=== PATIENT | female | born 1990 | race Caucasian/White ===

== ENCOUNTER 2019-09-06 20:49 | Emergency (ER) | payer BC ==
--- NOTE | 2019-09-06 21:13 | EDM.PDOC ---
ED HPI GENERAL MEDICAL PROBLEM - General Chief Complaint: Gastrointestinal Problem Stated Complaint: Abdominal pain Time Seen by Provider: 09/06/19 21:00 Source of Information: Reports: Patient History Limitations: Reports: No Limitations - History of Present Illness INITIAL COMMENTS - FREE TEXT/NARRATIVE: 29 YO WF presents to ER with epigastric abdominal pain x 2 days. Pt reports her pain began yesterday in am and describes her pain as intermittent burning sensation with associated nausea. Pt reports take pepcid which improved her symptoms but didn't alleviate completely prompting ER visit. Pt denies any worsening with eating or drinking. Pt reports no change in her BM and is passing gas. Pt reports increased belching over the last 2 days. Pt denies fever /chills, chest pain or shortness of breath. Pt reports no pain currently. Pt denies black or bloody stools. Pt denies any recent weight loss. Pt denies dysuria. Pt denies abnormal menses and states she is on BCP. Onset Date: 09/05/19 Duration: Day(s): (2) Location: Reports: Abdomen Quality: Reports: Burning Severity: Mild Improves with: Reports: None Worsens with: Reports: None Associated Symptoms: Reports: No Other Symptoms, Nausea/Vomiting - Related Data Allergies Allergy/AdvReac Type Severity Reaction Status Date / Time No Known Allergies Allergy Verified 09/06/19 21:13 Home Meds: Home Meds Levothyroxine 75 mcg PO ACBREAKFAST 06/19/17 [History] Docusate Sodium [Colace] 100 mg PO BID PRN cap 07/24/18 [Rx] Ibuprofen [Motrin] 600 mg PO Q6H PRN tablet 07/24/18 [Rx] Cephalexin [Keflex] 500 mg PO Q6HR #28 capsule 09/06/19 [Rx] Famotidine [Pepcid] 20 mg PO BID #20 tab 09/06/19 [Rx] Past Medical History Gastrointestinal History: Reports: None 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: Musculoskeletal History: Reports: None Psychiatric History: Reports: Anxiety, Depression Endocrine/Metabolic History: Reports: Hypothyroidism - Past Surgical History GI Surgical History: Reports: Appendectomy Musculoskeletal Surgical History: Reports: Other (See Below) Other Musculoskeletal Surgeries/Procedures:: knee surgery (left) Social & Family History - Family History Family Medical History: Noncontributory - Caffeine Use Caffeine Use: Reports: Coffee, Soda ED ROS GENERAL - Review of Systems Review Of Systems: See Below Constitutional: Reports: No Symptoms HEENT: Reports: No Symptoms Respiratory: Reports: No Symptoms Cardiovascular: Reports: No Symptoms Endocrine: Reports: No Symptoms GI/Abdominal: Reports: Abdominal Pain, Nausea : Reports: No Symptoms Musculoskeletal: Reports: No Symptoms Skin: Reports: No Symptoms Neurological: Reports: No Symptoms Psychiatric: Reports: No Symptoms Hematologic/Lymphatic: Reports: No Symptoms Immunologic: Reports: No Symptoms ED EXAM, GENERAL - Physical Exam Exam: See Below Exam Limited By: No Limitations General Appearance: Alert, WD/WN, No Apparent Distress Head: Atraumatic, Normocephalic Neck: Normal Inspection, Supple, Non-Tender, Full Range of Motion Respiratory/Chest: No Respiratory Distress, Lungs Clear, Normal Breath Sounds, No Accessory Muscle Use, Chest Non-Tender Cardiovascular: Normal Peripheral Pulses, Regular Rate, Rhythm, No Edema, No Gallop, No JVD, No Murmur, No Rub GI/Abdominal: Normal Bowel Sounds, Soft, No Organomegaly, No Distention, No Abnormal Bruit, No Mass, Tender (mild epigastric tenderness on deep palpation) Back Exam: Normal Inspection, Full Range of Motion, NT Extremities: Normal Inspection, Normal Range of Motion, Non-Tender, Normal Capillary Refill, No Pedal Edema Neurological: Alert, Oriented, CN II-XII Intact, Normal Cognition, Normal Gait, Normal Reflexes, No Motor/Sensory Deficits Psychiatric: Normal Affect, Normal Mood Skin Exam: Warm, Dry, Intact, Normal Color, No Rash Lymphatic: No Adenopathy Course - Vital Signs Last Recorded V/S: Last Vital Signs Temp 36.7 C 09/06/19 21:00 Pulse 78 09/06/19 21:00 Resp 20 09/06/19 21:00 BP 136/71 09/06/19 21:00 Pulse Ox 99 09/06/19 21:00 - Orders/Labs/Meds Orders: Active Orders 24 hr Category Date Time Status CULTURE URINE [RM] Stat Lab 09/06/19 21:44 Ordered Labs: Laboratory Tests 09/06/19 09/06/19 09/06/19 Range/Units 21:15 21:15 21:15 WBC 6.68 (5.00-10.00) 10^3/uL RBC 4.42 (3.80-5.50) 10^6/uL Hgb 14.0 (12.0-16.0) g/dL Hct 40.4 (37.0-47.0) % MCV 91.4 (82.0-92.0) fL MCH 31.7 H (27.0-31.0) pg MCHC 34.7 (32.0-36.0) g/dL RDW 11.9 (11.5-14.5) % Plt Count 216 (150-400) 10^3/uL MPV 10.7 H (7.4-10.4) fL Immature Gran % (Auto) 0.0 (0.0-5.0) % Neut % (Auto) 70.4 H (50.0-70.0) % Lymph % (Auto) 19.0 L (20.0-40.0) % [place] % (Auto) 9.4 H (2.0-8.0) % Eos % (Auto) 0.9 L (1.0-3.0) % Baso % (Auto) 0.3 (0.0-1.0) % Immature Gran # (Auto) 0.00 (0.00-0.50) 10^3/uL Neut # (Auto) 4.70 (2.50-7.00) 10^3/uL Lymph # (Auto) 1.27 (1.00-4.00) 10^3/uL [place] # (Auto) 0.63 (0.10-0.80) 10^3/uL Eos # (Auto) 0.06 L (0.10-0.30) 10^3/uL Baso # (Auto) 0.02 (0.00-0.10) 10^3/uL Sodium 140 (136-145) mmol/L Potassium 4.0 (3.3-5.3) mmol/L Chloride 102 (98-115) mmol/L Carbon Dioxide 27.2 (21.0-32.0) mmol/L Anion Gap 14.8 (5-15) mmol/L BUN 9 (6-25) mg/dL Creatinine 0.75 (0.51-1.17) mg/dL Est Cr Clr Drug Dosing 100.49 mL/min Estimated GFR (MDRD) > 60 mL/min Glucose 90 (75 - 99) mg/dL Calcium 8.7 (8.7-10.3) mg/dL Total Bilirubin 0.4 (0.2-1.0) mg/dL AST 17 (15-37) U/L ALT 24 (12-78) U/L Alkaline Phosphatase 74 (46-116) IU/L Total Protein 7.3 (6.4-8.2) g/dL Albumin 3.59 (3.00-4.80) g/dL Lipase 190 (73-393) U/L HCG, Qual Negative (NEGATIVE) Specimen Type Urinvoid Urine Color Yellow (YELLOW) Urine Appearance Clear (CLEAR) Urine pH 6.5 (5.0-9.0) Ur Specific [place] 1.015 (1.005-1.030) Urine Protein Negative (NEGATIVE) mg/dL Urine Glucose (UA) Negative (NEGATIVE) mg/dL Urine Ketones Negative (NEGATIVE) mg/dL Urine Occult Blood Small H (NEGATIVE) Urine Nitrite Negative (NEGATIVE) Urine Bilirubin Negative (NEGATIVE) Urine Urobilinogen 0.2 (0.2-1.0) E.U./dL Ur Leukocyte Esterase Small H (NEGATIVE) Urine RBC 5-10 H (0-5) /HPF Urine WBC 30-40 H (0-5) /HPF Ur Epithelial Cells Many H /LPF Urine Bacteria Many H (NONE TO FEW) /HPF Meds: Medications Discontinued Medications Generic Name Dose Route Start Last Admin Trade Name Freq PRN Reason Stop Dose Admin Cephalexin 2,500 mg 09/06/19 21:42 Keflex PO 09/06/19 21:43 ONETIME ONE Departure - Departure Time of Disposition: 21:46 Disposition: Home, Self-Care 01 Condition: Good Clinical Impression: Abdominal pain Qualifiers: Abdominal location: epigastric Qualified Code(s): R10.13 - Epigastric pain Urinary tract infection Qualifiers: Urinary tract infection type: acute cystitis Hematuria presence: without hematuria Qualified Code(s): N30.00 - Acute cystitis without hematuria - Discharge Information Prescriptions: Cephalexin [Keflex] 500 mg PO Q6HR #28 capsule Famotidine [Pepcid] 20 mg PO BID #20 tab Instructions: Abdominal Pain, Adult, Urinary Tract Infection, Adult, Easy-to- Read Referrals: Isai Lucero CONSTRUCTION WORKER [Nurse Practitioner] - Forms: ED Department Discharge Additional Instructions: 1. discharge home 2. keflex 500mg every 6 hours x 7 days for UTI 3. follow up with PCP for urine culture results 4. consider test for H. Pylori 5. continue pepcid 20mg twice a day 6. return to ER for worsening symptoms Sepsis Event Note - Focused Exam Vital Signs: Vital Signs Temp Pulse Resp BP Pulse Ox 09/06/19 21:00 36.7 C 78 20 136/71 99 Date Exam was Performed: 09/06/19 Time Exam was Performed: 21:45 - My Orders Last 24 Hours: My Active Orders 09/06/19 21:44 CULTURE URINE [RM] Stat - Assessment/Plan Last 24 Hours: My Active Orders 09/06/19 21:44 CULTURE URINE [RM] Stat Assessment:: 1. abdominal pain 2. urinary tract infection Plan: 1. discharge home 2. keflex 500mg every 6 hours x 7 days for UTI 3. follow up with PCP for urine culture results 4. consider test for H. Pylori 5. continue pepcid 20mg twice a day 6. return to ER for worsening symptoms
[2019-09-06 21:33] VITALS: BP 136/71; PULSE 78
[2019-09-06] MEDS ORDERED: Cephalexin 250 MG Cap PO ONE (21:42)
[2019-09-06 21:44] LABS: ANION GAP 14.8 mmol/L (5-15); CHLORIDE,CL 102 mmol/L (98-115); SODIUM,NA 140 mmol/L (136-145)
== END 2019-09-06 22:00 | disposition home or self-care (01) ==
LOC: KA.ED 20:49
DX: R10.13 Epigastric pain (principal); N30.00 Acute cystitis without hematuria; E03.9 Hypothyroidism, unspecified; Z79.890 Hormone replacement therapy
CPT/HCPCS: 36415; 80053; 81001; 83690; 84703; 85025; 87086; 99284; A9270-GY